=== PATIENT | female | born 1990 | race Caucasian/White ===

== ENCOUNTER 2017-01-13 19:39 | Emergency (ER) | payer BC ==
[~2017-01-13] VITALS: Ht 170.2 cm; Wt 73.3 kg
[2017-01-13 19:53] VITALS: BP 140/94; PULSE 111; RESP 18; TEMP 99.1; O2SAT 100
--- NOTE | 2017-01-13 19:58 | PD ---
HPI Chief Complaint: palpitations Time Seen by Provider: 19:56 Travel History International Travel<30 days: No Contact w/Intl Traveler<30days: No Traveled to known affect area: No History of Present Illness HPI Is 26-year-old female says that for the past 2 weeks she's been having palpitations. She feels her heart beat is fast and that time she has irregular beats. She has not had a syncopal episode. She has occasional chest tightness and feels short of breath at times. She is not on any medication. She has no history of hypertension and diabetes or heart disease. She is not aware of her family history as she is adopted. [facility] Social History Tobacco Use: No Allergies-Medications (Allergen,Severity, Reaction): Coded Allergies: No Known Allergies (Unverified , 01/13/17) Review of Systems General / Constitutional: No: Fever, Chills Eyes: No: Diploplia, Blurred Vision HENT: No: Headaches, Vertigo Cardiovascular: Positive: Palpitations, No: Chest Pain or Discomfort Respiratory: Positive: Shortness of Breath Gastrointestinal: No: Nausea, Vomiting Genitourinary: No: Urgency, Frequency Physical Exam Narrative GENERAL: Well-developed female SKIN: Focused skin assessment warm/dry. HEAD: Atraumatic. Normocephalic. EYES: Pupils equal and round. No scleral icterus. No injection or drainage. ENT: No nasal bleeding or discharge. Mucous membranes pink and moist. NECK: Trachea midline. No JVD. CARDIOVASCULAR: Regular rate and rhythm. No murmur appreciated. RESPIRATORY: No accessory muscle use. Clear to auscultation. Breath sounds equal bilaterally. GASTROINTESTINAL: Abdomen soft, non-tender, nondistended. Hepatic and splenic margins not palpable. MUSCULOSKELETAL: No obvious deformities. No clubbing. No cyanosis. No edema. NEUROLOGICAL: Awake and alert. No obvious cranial nerve deficits. Motor grossly within normal limits. Normal speech. PSYCHIATRIC: Appropriate mood and affect; insight and judgment normal. Data Data Last Documented VS Vital Signs Date Time Temp Pulse Resp B/P Pulse Ox O2 Delivery O2 Flow Rate FiO2 01/13/17 20:35 97 16 126/77 98 Room Air 01/13/17 19:53 99.1 Orders Electrocardiogram (01/13/17 19:56) Complete Blood Count With Diff (01/13/17 19:56) Basic Metabolic Panel (Bmp) (3/26/17 19:56) Urinalysis - C+S If Indicated (01/13/17 19:56) Magnesium (Mg) (01/13/17 19:56) Thyroid Stimulating Hormone (01/13/17 19:56) Chest, Pa & Lat (01/13/17 19:56) D-Dimer (01/13/17 20:01) Troponin I (01/13/17 20:05) Urine Culture (01/13/17 20:17) Labs Laboratory Tests Test 01/13/17 01/13/17 20:05 20:17 White Blood Count 9.9 TH/MM3 Red Blood Count 4.60 MIL/MM3 Hemoglobin 13.7 GM/DL Hematocrit 40.8 % Mean Corpuscular Volume 88.8 FL Mean Corpuscular Hemoglobin 29.8 PG Mean Corpuscular Hemoglobin 33.5 % Concent Red Cell Distribution Width 11.6 % Platelet Count 310 TH/MM3 Mean Platelet Volume 7.8 FL Neutrophils (%) (Auto) 57.6 % Lymphocytes (%) (Auto) 30.6 % Monocytes (%) (Auto) 7.1 % Eosinophils (%) (Auto) 4.0 % Basophils (%) (Auto) 0.7 % Neutrophils # (Auto) 5.7 TH/MM3 Lymphocytes # (Auto) 3.0 TH/MM3 Monocytes # (Auto) 0.7 TH/MM3 Eosinophils # (Auto) 0.4 TH/MM3 Basophils # (Auto) 0.1 TH/MM3 CBC Comment DIFF FINAL Differential Comment D-Dimer Quantitative (PE/DVT) 0.32 MG/L FEU Sodium Level 141 MEQ/L Potassium Level 3.5 MEQ/L Chloride Level 108 MEQ/L Carbon Dioxide Level 25.0 MEQ/L Anion Gap 8 MEQ/L Blood Urea Nitrogen 14 MG/DL Creatinine 1.10 MG/DL Estimat Glomerular Filtration 60 ML/MIN Rate Random Glucose 124 MG/DL Calcium Level 8.4 MG/DL Magnesium Level 1.9 MG/DL Troponin I LESS THAN 0.02 NG/ML Thyroid Stimulating Hormone 2.590 uIU/ML 3rd Gen Urine Color YELLOW Urine Turbidity SLIGHT Urine pH 6.0 Urine Specific [place] 1.015 Urine Protein NEG mg/dL Urine Glucose (UA) NEG mg/dL Urine Ketones NEG mg/dL Urine Occult Blood TRACE Urine Nitrite NEG Urine Bilirubin NEG Urine Leukocyte Esterase TRACE Urine RBC 0-3 /hpf Urine WBC 3-5 /hpf Urine Squamous Epithelial 6-8 /hpf Cells Urine Bacteria MOD /hpf Urine Mucus OCC /lpf Microscopic Urinalysis Comment CULTURE INDICATED MDM Medical Decision Making Medical Screen Exam Complete: Yes Emergency Medical Condition: Yes Medical Record Reviewed: Yes Differential Diagnosis Differential includes dysrhythmia, PVCs, palpitations Narrative Course EKG shows sinus tachycardia with occasional PVCs. Chest x-ray is negative. D- dimer is normal. Lab work is unremarkable. Patient is stable for discharge. She tends to run a fast heart rate. Enema any medications warranted I recommended that she avoid stimulants Diagnosis Primary Impression: PVC (premature ventricular contraction) Disposition: DISCHARGE HOME Condition: Stable Flo Dias MD Jan 13, 2017 19:58
[2017-01-13 20:18] LABS: AUTOMATED NEUTROPHIL # 5.7 TH/MM3 (1.8-7.7); BASOPHIL # 0.1 TH/MM3 (0-0.2); BASOPHIL % 0.7 % (0.0-2.0); EOSINOPHIL # 0.4 TH/MM3 (0-0.4); HEMATOCRIT 40.8 % (35.0-46.0); LYMPH % 30.6 % (9.0-44.0); MEAN CELL VOLUME 88.8 FL (80.0-100.0); MEAN CORPUSCULAR HEMOGLOBIN 29.8 PG (27.0-34.0); MEAN CORPUSCULAR HGB CONC 33.5 % (32.0-36.0); MONO % 7.1 % (0.0-8.0); NEUT % 57.6 % (16.0-70.0); PLATELET COUNT 310 TH/MM3 (150-450); RED CELL DISTRIBUTION WIDTH 11.6 % (11.6-17.2); WHITE BLOOD COUNT 9.9 TH/MM3 (4.0-11.0)
[2017-01-13 20:26] LABS: CHLORIDE 108 MEQ/L (98-107); POTASSIUM 3.5 MEQ/L (3.5-5.1); SODIUM (NA) 141 MEQ/L (136-145)
[2017-01-13 20:29] LABS: HEMO FLAGS DIFF FINAL
[2017-01-13 20:30] LABS: ANION GAP 8 MEQ/L (5-15); BLOOD UREA NITROGEN 14 MG/DL (7-18); MAGNESIUM 1.9 MG/DL (1.5-2.5)
[2017-01-13 20:32] LABS: BLOOD, URINE TRACE (NEG); GLUCOSE,URINE NEG (NEG); KETONE, URINE NEG (NEG); NITRITE,URINE NEG (NEG)
[2017-01-13 20:33] LABS: GLOMERULAR FILTRATION RATE 60 ML/MIN (>89)
[2017-01-13 20:35] VITALS: BP 126/77; PULSE 97; RESP 16; O2SAT 98
--- NOTE | 2017-01-13 20:37 | RADHPO ---
EXAM DATE/TIME: 01/13/2017 20:03 [place] COMPARISON: No previous studies available for comparison. INDICATIONS : Short of breath. MEDICAL HISTORY : None. SURGICAL HISTORY : None. ENCOUNTER: Initial ACUITY: 2 weeks PAIN SCORE: 0/10 LOCATION: Bilateral chest FINDINGS: PA and lateral views of the chest demonstrate the lungs to be symmetrically aerated without evidence of mass, infiltrate or effusion. The cardiomediastinal contours are unremarkable. Osseous structure s are intact. CONCLUSION: No acute disease. Christ Rankin MD on January 13, 2017 at 20:35 Board Certified Radiologist. This report was verified electronically.
[2017-01-13 20:43] LABS: URINE COLOR YELLOW (YELLW/STRAW)
[2017-01-13 20:44] LABS: BACTERIA, URINE MOD /hpf; MUCUS URINE OCC /lpf (OCC)
[2017-01-13 20:45] LABS: COMMENT (UR) CULTURE INDICATED; CULTURE IF INDICATED CULTURE INDICATED; RBC, URINE 0-3 /hpf (0-3)
--- NOTE | 2017-01-14 14:02 | EKG ---
Date Performed: 01/13/2017 Time Performed: 19:46:54 PTAGE: 26 years EKG: Sinus tachycardia with PVC(s) rSr'(V1) - probable normal variant Inferior T wave changes ma y be normal for age Borderline ECG NO PREVIOUS TRACING DOCTOR: Roberto Ibrahim Interpretating Date/Time 01/14/2017 14:01:11
== END 2017-01-13 21:44 | disposition home or self-care (01) ==
LOC: PHED 19:39
DX: I49.3 Ventricular premature depolarization (principal); R00.0 Tachycardia, unspecified; R06.02 Shortness of breath
CPT/HCPCS: 71020; 80048; 81001; 83735; 84443; 84484; 85025; 85379; 87086; 93005